=== PATIENT | male | born 2000 | race Caucasian/White ===

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

== ENCOUNTER 2020-12-02 22:26 | Emergency (ER) | payer BC, SELFPAY ==
[2020-12-02 22:29] VITALS: BP 156/87; PULSE 68; RESP 18; TEMP 36.1; O2SAT 98; BMI 39.6
[2020-12-02 22:41] VITALS: PULSE 89; RESP 15; O2SAT 98
--- NOTE | 2020-12-02 23:23 | EDS_ITS ---
HPI History of Present Illness Chief Complaint: Fall Narrative Narrative: 20-year-old male who is otherwise healthy presenting for evaluation after hitting his head. He states he was doing a slip and slide with the [place] board and stood up and fell backwards hitting his head. He denies LOC. He felt a little bit nauseous initially and had a mild headache. He states that he was initially kind of in a brain frog but now this is resolved. He has no nausea. He has not vomited. He has mild lightheadedness. No visual complaints. PFSH PFSH Medical History Non-smoker Home Medications No Known/Unobtainable [No Known Home Medications] 02/25/17 [History Last Taken Unknown] Allergy/AdvReac Type Severity Reaction Status Date / Time Penicillins [PCN] Allergy Hives Verified 12/02/20 22:27 Social History Smoking Status: Never smoker ROS ROS ED Constitutional Constitutional ED: Denies chills, fever(s) or sweats Eyes Eyes: Denies blurry vision or change in vision ENT ENT ED: Denies ear pain or sore throat Cardiovascular Cardiovascular: Denies chest pain, palpitations or racing heartbeat Respiratory/Chest Respiratory/Chest: Denies cough, dyspnea or sputum Gastrointestinal Gastrointestinal: Reports nausea; Denies abdominal pain, constipation, diarrhea or vomiting Genitourinary Genitourinary ED: Denies dysuria, hematuria or urinary frequency Musculoskeletal Musculoskeletal: Denies arthralgias, myalgias or neck pain Integumentary Denies abscess, Abrasions or rash Neurologic Neurologic: Reports headache(s); Denies weakness Psychiatric Psychiatric: Denies anxiety, depression, suicidal ideation or suicidal thoughts Endocrine Endocrinology: Denies polydipsia or polyuria EXAM Physical Exam Const Vital Signs: 12/02/20 22:29 12/02/20 22:41 Temperature 97 F L Temperature Source Temporal Pulse Rate 68 89 Respiratory Rate 18 15 Respiratory Effort Normal Respiratory Depth Normal Respiratory Pattern Normal Blood Pressure 156/87 H Blood Pressure Mean 110 Pulse Ox 98 98 Oxygen Delivery Method Room Air Room Air Positive well nourished and well developed General Appearance ED: active and well developed HEENT Reports normocephalic, head/scalp atraumatic and moist mucous membranes Eyes PERRL and EOMs intact bilaterally General Eye ED: Yes normal appearance of both eyes Neck General: normal visual inspection and trachea midline Chest Wall Chest: abnormal inspection of the chest and symmetrical chest wall rise Resp Effort and Inspection: able to speak in complete sentences Auscultation: clear to auscultation bilaterally Cardio regular rate Back/Spine Cervical Spine: cervical ROM normal and normal cervical lordosis Extremity General Extremety ED: Yes normal exam except as noted General Extremity: normal exam except as noted Neuro oriented x3, CN's II-XII intact bilaterally, moves all extremities, no focal motor deficits, no sensory deficits noted and gait normal Motor Exam: strength 5/5 throughout and muscle tone normal throughout Psych Appearance: grossly normal and appropriate Skin no rashes or lesions noted MDM MDM MDM Narrative Medical decision making narrative: Patient presenting for evaluation of head injury. He is concerned he has concussion. Clinically his symptoms are mild lightheadedness and nausea which has resolved. On examination he has no focal neurologic deficits. I believe patient clinically has a concussion. He was given concussion precaution. I do not believe he needs a CT of his brain. He and his father were given instructions on red flag signs or symptoms which would warrant return to the ED for imaging. They are amenable to this plan. Patient offered nausea medicine but declines. Impression: 1. Concussion Discharge Plan Triage Chief Complaint: Fall ED Provider: Dylon Quiroz Dx/Rx/DC Orders Instructions: ED Concussion Prescriptions: No Action No Known Home Medications RF: 0 Primary Care Provider: Rashmi Brown Referrals: Rashmi Brown MD [Primary Care Provider] - Disposition Disposition: Home, self care
[2020-12-02 23:42] VITALS: BP 136/84; PULSE 75; RESP 16; O2SAT 98
== END 2020-12-02 23:43 | disposition home or self-care (01) ==
LOC: ED 23:31
PROVIDERS: Emergency Provider Student in an Organized Health Care Education/Training Program
DX: S06.0X0A Concussion without loss of consciousness, initial encounter (principal); V93.38XA Fall on board other unpowered watercraft, initial encounter; Y93.18 Activity, surfing, windsurfing and boogie boarding; Y92.9 Unspecified place or not applicable; Y99.9 Unspecified external cause status
CPT/HCPCS: 99282

== ENCOUNTER 2024-08-05 14:39 | Emergency (ER) | payer BC, SELFPAY ==
[2024-08-05 14:40] VITALS: BP 140/84; PULSE 123; RESP 18; TEMP 38.1; O2SAT 97; BMI 42.7
--- NOTE | 2024-08-05 15:10 | EX.ED.DYSGE1 ---
HPI History of Present Illness Chief Complaint: General Illness Informant: patient and spouse/S.O. Onset/Context/Timing Onset: Days Context: Gradual Onset Timing: Continuous Current Severity: Mild Maximum Severity: Mild Narrative Narrative: Healthy 24-year-old male. History of URI symptoms for several days body aches and diarrhea. No vomiting. Fever as high as 1-3.5. Took Tylenol 1 hour and a half ago. No abdominal pain. Nonproductive cough. Prior similar symptoms: Yes Recent Illness/Hospitalization: No PFSH PFSH Medical History Non-smoker Home Medications ?Medication ?Instructions ?Recorded ?Last Taken ?Type No Known/Unobtainable [No Known 02/25/17 Unknown History Home Medications] ondansetron 4 mg disintegrating 4 mg PO Q6H PRN nausea and 08/05/24 Unknown Rx tablet vomiting #10 tabs Allergy/AdvReac Type Severity Reaction Status Date / Time Penicillins (PCN) Allergy Hives Verified 12/02/20 22:27 Social History Smoking Status: Never smoker ROS ROS ED ROS Narrative Fever and chills. Body aches. Diarrhea. Cough. Constitutional Constitutional ED: Reports chills and fever(s) Eyes Eyes: Denies blurry vision ENT ENT ED: Denies ear pain or rhinorrhea Cardiovascular Cardiovascular: Denies chest pain Respiratory/Chest Respiratory/Chest: Reports cough Gastrointestinal Gastrointestinal: Reports diarrhea and nausea; Denies abdominal pain, constipation, melena or vomiting Genitourinary Genitourinary ED: Denies dysuria or hematuria Musculoskeletal Musculoskeletal: Denies arthralgias or back pain Integumentary Denies abscess Neurologic Neurologic: Denies headache(s) Psychiatric Psychiatric: Denies anxiety or depression Endocrine Endocrinology: Denies cold intolerance Hematologic/Lymphatic Hematologic/Lymphatic: Reports none Allergic/Immunologic Allergic/Immunologic ED: Denies mouth swelling, tongue swelling or urticaria EXAM Physical Exam Narrative Exam Narrative: Well-appearing 24-year-old male sitting in a hallway chair due to volume and acuity. Vital signs are stable he does have a fever of 100.6. Pulse ox 97% on room air. He does not look septic or toxic. He does not look significantly dehydrated. H EENT exam pupils round react light. Moist mucous membranes. Neck nontender no lymphadenopathy. No meningismus. Lungs clear to auscultation bilaterally. Dry cough. Heart tachycardic 120 no murmur. Chest wall ribs nontender. Abdomen soft nontender. Back nontender. Moving all 4 extremities. Nontender no edema. No rash. Neurologically he is awake and alert no focal motor deficits. Answer questions following commands. Const Vital Signs: 08/05/24 14:40 08/05/24 14:53 08/05/24 15:39 Temperature 100.6 F H 98.3 F Temperature Source Oral Temporal Pulse Rate 123 H Respiratory Rate 18 Respiratory Pattern Normal Blood Pressure 140/84 H Blood Pressure Mean 102 Pulse Ox 97 Oxygen Delivery Method Room Air Positive well nourished and well developed; Negative for cachectic, contractures or unkempt General Appearance ED: well developed and NAD; Negative for unkempt, cachectic, contractures, cyanotic, diaphoretic or pallor Nutritional Appearance: Negative for cachectic HEENT Reports moist mucous membranes Negative for trauma or tenderness Eyes PERRL and EOMs intact bilaterally Neck no lymphadenopathy, supple and no JVD Chest Wall inspection of chest normal and palpation of chest normal Resp normal respiratory effort and clear to auscultation bilaterally Cardio regular rhythm, S1 normal heart sound, S2 normal heart sound and no murmurs; Negative for regular rate Rate: tachycardic GI normal to inspection, nondistended, normoactive bowel sounds, non-tender, non-distended and no masses Palpation: soft; Negative for tender, guarding or rebound tenderness present Back/Spine no CVA tenderness General Back: Negative for CVA tenderness Cervical Spine: Negative for cervical spine tenderness Thoracic Spine / Upper Back: Negative for thoracic spinal tenderness or paraspinal muscle tenderness Lumbar Spine / Lower Back: Negative for lumbar spinal tenderness Extremity normal to inspection General Extremety ED: Negative for edema or tenderness General Extremity: Negative for edema Neuro oriented x3 and CN's II-XII intact bilaterally Sensorium / Orientation: alert; Negative for orientation impaired, lethargic or stuporous Motor Exam: strength 5/5 throughout; Negative for general weakness or strength abnormal Psych mental status grossly normal Appearance: Negative for unkempt Attitude: No agitated Mood & Affect: Negative for depressed, anxious or tearful Skin no rashes or lesions noted and no wounds General Skin Exam: Negative for jaundice or pallor Lesions: No lesion noted Rashes: No rashes noted Trauma: Negative for abrasion Wounds: Negative for wounds noted MDM MDM MDM Narrative Medical decision making narrative: 24-year-old male suspect viral syndrome most likely influenza. COVID and flu test was sent. He prefers to be discharged to home and he will call back to get his test results. Plenty of fluids. Rest. Alternate Tylenol Motrin. Zofran as needed for nausea. Imodium as needed for diarrhea. Clinically I do not think he needs any IV fluids or other labs. I do not believe he needs a chest x-ray as lungs are clear. History & Record Review Discussion w/independent historian: Patient and Family Lab Data Attestation: I reviewed the patient's lab results. Lab results narrative: Flu a positive. Discharge Plan Triage Chief Complaint: General Illness ED Provider: Tim Lewis Dx/Rx/DC Orders Clinical Impression: Viral syndrome, Influenza A Instructions: ED Viral Syndrome (Adult), ED Influenza (Adult) Prescriptions: New ondansetron 4 mg tablet,disintegrating 4 mg PO Q6H PRN (Reason: nausea and vomiting) Qty: 10 0RF No Action No Known Home Medications Primary Care Provider: Care Physician,No Primary Referrals: Franck Bond MD [Med Staff - Design Quality Engineer] - Care Physician,No Primary [Primary Care Provider] - Activity Restrictions/Additional Instructions: Plenty of fluids and rest. Water, Gatorade 7-Up and increase diet slowly as tolerated. Zofran as needed for nausea. Alternate Tylenol and Motrin for fever and body aches. You should start feeling better in the next 48 to 72 hours. If you are getting worse either return or follow-up with a local primary care physician. I suspect you have influenza but your test is not back yet. Print Language: Thai Disposition Disposition: Home, Self Care Discharge Date/Time: 08/05/24 15:40
[2024-08-05 15:39] VITALS: TEMP 36.8
== END 2024-08-05 15:40 | disposition home or self-care (01) ==
PROVIDERS: Emergency Provider Emergency Medicine; Visit Provider Emergency Medicine
DX: J10.1 Influenza due to other identified influenza virus with other respiratory manifestations (principal)
CPT/HCPCS: 87631; 99282